=== PATIENT | female | born 1950 | race Caucasian/White ===

== ENCOUNTER → 2019-01-30 12:52 | Outpatient (CLI) | payer MEDICARE, BC, SELFPAY ==
--- NOTE | 2019-01-30 | DI.MG.S_ITS ---
BILATERAL DIGITAL SCREENING MAMMOGRAM 3D/2D WITH CAD WITH AUGMENTATION: 01/30/2019 CLINICAL: Routine screening. Family history of breast cancer. Comparison is made to exams dated: 12/20/2017 mammogram, 11/02/2016 mammogram, and 11/01/2015 mammogram - [facility]. The tissue of both breasts is heterogeneously dense. This may lower the sensitivity of mammography. Current study was also evaluated with a Computer Aided Detection (CAD) system. Bilateral breast implants are intact. No significant masses, calcifications, or other findings are seen in either breast. There has been no significant interval change. IMPRESSION: There is no mammographic evidence of malignancy. A 1 year screening mammogram is recommended. This exam was interpreted at Station ID: [id number]. NOTE: For mammograms, a report in lay terms will be sent to the patient. Approximately 15% of breast malignancies will not be visualized mammographically. In the management of a palpable breast mass, a negative mammogram must not discourage biopsy of a clinically suspicious lesion. Electronically Signed By: Agapito orellana/arun:01/30/2019 17:29:06 letter sent: Normal Exam ACR BI-RADS Category 2: Benign Finding(s) 3342F
== END ==
PROVIDERS: Family Provider Family Medicine; PCP Family Medicine
DX: Z12.31 Encounter for screening mammogram for malignant neoplasm of breast (principal); Z80.3 Family history of malignant neoplasm of breast
CPT/HCPCS: 77063; 77067

== ENCOUNTER → 2019-05-08 14:42 | Outpatient (CLI) | payer MEDICARE, BC, SELFPAY | PROVIDERS: PCP Family Medicine; Visit Provider Family Medicine | DX: M85.852 Other specified disorders of bone density and structure, left thigh (principal); Z78.0 Asymptomatic menopausal state; Z79.890 Hormone replacement therapy; Z87.891 Personal history of nicotine dependence | CPT/HCPCS: 77080; 77081 ==

== ENCOUNTER 2019-07-04 13:40 | Day surgery (SDC) | payer MEDICARE, BC, SELFPAY ==
[2019-07-04] MEDS: SODIUM CHLORIDE 0.9% 1,000 ML 200 ML IV (13:56)
[2019-07-04 14:00] VITALS: BMI 24.0
--- NOTE | 2019-07-04 15:42 | PM.HP.1 ---
History of Present Illness Date Patient Seen: 07/04/19 Time Patient Seen: 15:42 Chief complaint: [id number] Narrative: 69-year-old woman presents for his screening colonoscopy -overdue. Last 8 years ago with history of colon polyps No family history of colon or rectal cancer Tolerated prep was No abdominal complaints Patient History Family & Social History Social History: household members spouse Tobacco & Substance use: Smoking Status Former smoker alcohol intake current Meds Home Medications Medication Instructions Recorded Confirmed Type acyclovir 400 mg tablet 400 mg PO TID #90 tab 12/30/18 Rx estradiol 10 mcg vaginal tablet 10 mcg VAGINAL Q DAY #60 tab 12/30/18 Rx medroxyprogesterone 5 mg tablet 5 mg PO DAILY #90 tab 05/22/19 Rx estradiol 1 mg tablet 1 mg PO QDAY #90 tab 05/23/19 Rx triamterene 37.5 1 tab PO DAILY #90 tab 05/23/19 Rx mg-hydrochlorothiazide 25 mg tablet Allergies Allergy/AdvReac Type Severity Reaction Status Date / Time No Known Drug Allergies Allergy Verified 07/04/19 14:07 Review of Systems Constitutional Constitutional: Denies fever(s) Eyes Eyes: Denies bulging eyes ENT Ears, Nose, Mouth, and Throat: No lip swelling Cardiovascular Cardiovascular: Denies generalize swelling Respiratory Respiratory: Denies stridor Gastrointestinal Gastrointestinal: Denies coffee ground emesis Musculoskeletal Musculoskeletal: Denies loss of height Integumentary/Breasts Skin/Breast: Denies wounds Neurologic Neurologic: Denies abnormal speech and Denies confusion Psychiatric Psychiatric: Denies confusion Endocrine Endocrine: Denies deepening of the voice Hematologic/Lymphatic Hematologic/Lymphatic: Denies lymphadenopathy Allergic/Immunologic Allergic/Immunologic: Denies lip swelling Exam Const General: cooperative and healthy appearing Orientation: alert [facility] Head: normal to inspection Nose: nares normal Mouth: oral mucosae normal and lip normal Eyes Eyelids: eyelids normal Conjunctivae: conjunctivae normal Sclera: sclerae normal Neck Neck: supple and other (No thyromegally) Chest Chest: other (LCTAB , regular respiratory effort) Cardio Rhythm: regular rhythm Heart Sounds: S1 normal, S2 normal, no gallops, no murmurs and no rubs GI Other: Well-healed vertical midline incision, abdomen soft nontender nondistended Skin General: no rashes or lesions noted Neuro General: alert and awake Psych Appearance: grossly normal Affect: normal affect Assessment & Plan Assessment & Plan narrative: 69-year-old woman presents for screening colonoscopy Risks and benefits discussed This included risk of , perforation, missed lesions, incomplete colonoscopy, hypoxia All questions answered
[2019-07-04] MEDS: GLUCAGON,HUMAN RECOMBINANT 1 MG/ML VIAL IV (16:10)
[2019-07-04] MEDS: fentaNYL 250 MCG/5 ML INJ IV (16:22)
[2019-07-04] MEDS: MIDAZOLAM 5 MG/5 ML VIAL IV (16:23)
--- NOTE | 2019-07-04 16:33 | PM.OP.ENDO ---
Operative Date/Time/Diagnoses Date of procedure: 07/04/19 Time of procedure: 16:33 Pre-op diagnosis: Colorectal cancer screening Post-op diagnosis: same Procedure & Clinicians Study performed: Screening colonoscopy-complete Same procedure as scheduled: Yes Indications: 69-year-old woman 8 years status post most recent screening colonoscopy, personal history of colon polyps -hence now overdue for screening colonoscopy Surgeon: Himanshu Sanchez Procedure Notes SCOAP/Timeout: Completed Procedure in detail: Patient was brought to the operating suite a time-out was completed. She was sedated over the entire course of her procedure with 10 mg of midazolam in 250 micro g of fentanyl. A digital rectal exam was performed without lesion. 160 cm colonoscope was advanced through the folds the rectum and colon with significant difficulty, in particular there was a tight fold in what appeared to be the transverse colon which took multiple maneuvers torquing and repositioning to advance the scope beyond. The cecum was identified with a appendiceal orifice, as well as a prominent ileocecal. There was thought to be a fullness of the ileocecal valve that initially appeared abnormal. As a consequence the colonoscope was retroflexed within the cecum. From this view the ileocecal valve appeared normal without associated polyp. The scope was then carefully withdrawn. Right-sided diverticula were identified, in addition there were sigmoid diverticuli noted -there was a moderate degree of these. Scope was retroflexed in the rectum No mucosal based lesions other than diverticular disease was identified Prep was excellent Scope withdrawal time: 9 Sedation minutes: 49 Specimen(s): none sent Complications: none Impression: Tortuous colon Diverticulosis of the right and sigmoid colon Recommendations: Colonscopy in 5 years Plan for aftercare: PACU then home Follow up: as needed Disposition: PACU
[2019-07-04 16:36] VITALS: BP 126/67; PULSE 62; RESP 12; TEMP 35.8; O2SAT 96
[2019-07-04 16:41] VITALS: BP 111/66; PULSE 60; RESP 11; O2SAT 94
[2019-07-04 16:46] VITALS: BP 112/65; PULSE 60; RESP 12; O2SAT 93
--- NOTE | 2019-07-04 16:47 | SUR.PHASEI ---
aroused easily to voice upon arrival. Currently KEATON abel
[2019-07-04 17:01] VITALS: PULSE 57; RESP 12; TEMP 36.6; O2SAT 96
--- NOTE | 2019-07-04 17:03 | SUR.PHASEI ---
Pt. aroused spontaneously, denies pain, report given to Anabel Brennan RN. Stable
[2019-07-04 17:16] VITALS: BP 133/73; PULSE 60; RESP 13; TEMP 36.5; O2SAT 97
[2019-07-04 17:22] VITALS: BP 126/69; PULSE 57; RESP 12; TEMP 36.3; O2SAT 95
== END 2019-07-04 17:50 | disposition home or self-care (01) ==
PROVIDERS: PCP Family Medicine; Visit Provider Surgery
PROC: 0DJD8ZZ Inspection of Lower Intestinal Tract, Via Natural or Artificial Opening Endoscopic (ICD-10-PCS; CPT 45378; principal; 2019-07-04 15:00)
DX: Z86.010 Personal history of colon polyps (principal); K57.30 Diverticulosis of large intestine without perforation or abscess without bleeding
CPT/HCPCS: G0105; 99152; 99153; J1610; J2250; J3010

== ENCOUNTER → 2019-10-25 13:40 | Outpatient (CLI) | payer MEDICARE, BC, SELFPAY ==
--- NOTE | 2019-10-25 13:44 | DI.RAD.S_ITS ---
PROCEDURE: XR HIP W PEL IF DONE RT 2V INDICATIONS: Fall, pain to R hip, r/o bony abnormality TECHNIQUE: AP pelvis with lateral view(s) of the right hip(s). COMPARISON: None. FINDINGS: Bones: No fractures or dislocations. Pelvic ring appears intact. No suspicious bony lesions. Degenerative osteoarthritis is moderately severe at each hip. No fracture found. Soft tissues: The visualized bowel gas pattern is normal. No suspicious soft tissue calcifications. IMPRESSION: Source of asymmetric right hip pain is not seen. Moderately severe bilateral hip joint osteoarthritis is present. Dictated by: Lg Malhotra M.D. on 10/25/2019 at 14:38 Approved by: Lg Malhotra M.D. on 10/25/2019 at 14:39
--- NOTE | 2019-10-25 13:44 | DI.RAD.S_ITS ---
PROCEDURE: XR SHOULDER RT MIN 2V INDICATIONS: Fall, pain to AC joint and decreased ROM, r/o fx/AC sep TECHNIQUE: 3 views of the shoulder were acquired. COMPARISON: None. FINDINGS: Bones: No fractures or dislocations. No suspicious bony lesions. Visualized ribs appear intact. Soft tissues: No suspicious soft tissue calcifications. IMPRESSION: Mild osteoarthritis at the a.c. joint. No fracture found. Dictated by: Lg Malhotra M.D. on 10/25/2019 at 14:37 Approved by: Lg Malhotra M.D. on 10/25/2019 at 14:38
== END ==
PROVIDERS: PCP Family Medicine; Visit Provider Physician Assistant
DX: S70.01XA Contusion of right hip, initial encounter (principal); M25.511 Pain in right shoulder; M19.011 Primary osteoarthritis, right shoulder; M16.0 Bilateral primary osteoarthritis of hip; W19.XXXA Unspecified fall, initial encounter
CPT/HCPCS: 73030; 73502

== ENCOUNTER → 2020-07-02 11:36 | Outpatient (CLI) | payer MEDICARE, BC, SELFPAY ==
--- NOTE | 2020-07-02 11:39 | DI.RAD.S_ITS ---
PROCEDURE: XR CHEST 2V INDICATIONS: chest pain TECHNIQUE: 2 views of the chest were acquired. COMPARISON: None. FINDINGS: Surgical changes and devices: None. Lungs and pleura: Lungs are clear. No pleural effusions or pneumothorax. Mediastinum: Mediastinal contours are normal. Heart size is normal. Bones and chest wall: No suspicious bony abnormalities. Soft tissues appear unremarkable. IMPRESSION: No acute cardiopulmonary findings. Dictated by: Andie Betts M.D. on 07/02/2020 at 15:23 Approved by: Andie Betts M.D. on 07/02/2020 at 15:23
[2020-07-02 12:41] LABS: Add Manual Diff / Slide Review NO; Basophils Absolute Auto 0 /uL (0-100); Basophils Percent Auto 0.5 % (0-2); Eosinophils Absolute Auto 100 /uL (0-450); Eosinophils Percent Auto 0.8 % (2-4); Hematocrit 42.8 % (36-46); Hemoglobin 14.6 g/dL (12.0-16.0); Lymphocytes Absolute Auto 2500 /uL (1100-4500); Lymphocytes Percent Auto 27.3 % (25-40); Mean Corpuscular HGB Conc 34.1 % (30-36); Mean Corpuscular Hemoglobin 32.5 PG (26-34); Mean Corpuscular Volume 95.5 fL (80-100); Monocytes Absolute Auto 600 /uL (0-900); Monocytes Percent Auto 6.8 % (3-14); Neutrophils Absolute Auto 5800 /uL (1500-7000); Neutrophils Percent Auto 64.6 % (50-75); Platelet Count 411 X10^3/uL (150-400); Red Blood Cell Count 4.48 X10^6/uL (4.0-5.2); Red Cell Distribution Width 13.2 % (11.6-14.8)
[2020-07-02 15:18] LABS: Alanine Aminotransferase 13 IU/L (<35); Albumin Globulin Ratio 1.7 (1.0-2.8); Alkaline Phosphatase 74 U/L (38-126); Aspartate Aminotransferase 22 IU/L (14-36); BUN Creatinine Ratio 22.8 (6-22); Bilirubin Total 0.6 mg/dL (0.2-1.3); Blood Urea Nitrogen 21 mg/dL (7-17); Calcium 10.1 mg/dL (8.4-10.2); Carbon Dioxide 26 mmol/L (22-32); Chloride 97 mmol/L (98-107); Cholesterol 209 mg/dL (140-199); Estimated Glomerular Filt Rate > 60.0 mL/min (>60); Glucose 104 mg/dL (80-110); HDL Cholesterol 75 mg/dL (40-60); HEMOLYSIS < 15 (0-50); LDL Cholesterol Calculated 104 mg/dL (<100); Potassium 4.2 mmol/L (3.4-5.1); Sodium 135 mmol/L (137-145); Triglycerides 152 mg/dL (35-150)
== END ==
PROVIDERS: PCP Family Medicine; Referring Provider Family Medicine; Visit Provider Family Medicine
DX: R07.9 Chest pain, unspecified (principal)
CPT/HCPCS: 36415; 71046; 80053; 80061; 85025

== ENCOUNTER → 2020-07-05 10:31 | Outpatient (CLI) | payer MEDICARE, BC, SELFPAY ==
--- NOTE | 2020-07-05 10:33 | DI.US.S_ITS ---
PROCEDURE: US PELVIC COMPLETE INDICATIONS: postmenopausal bleeding TECHNIQUE: Real-time scanning was performed of the pelvic organs, with image documentation. Additional endovaginal scanning was necessary due to incomplete visualization of the adnexal and endometrial structures by transabdominal scanning. COMPARISON: [facility], , PELVIC COMPLETE, 01/16/2015, 11:19. FINDINGS: Transabdominal scanning: Limited scanning through the kidneys shows no hydronephrosis. No pathologic free abdominal or pelvic fluid. Endovaginal scanning: Uterus: Uterus is normal in size at 5.4 x 6.1 x 9.4 cm, anteverted. The endometrium measures 8.0 mm in combined thickness. There is a midline anterior submucosal fibroid measuring 2.6 x 2.2 x 3.6 cm and on the right posteriorly a submucosal 2.8 x 3.0 x 3.3 cm fibroid also can be seen. On the left there is a posterior sub serosal 3.2 x 3.9 x 3.9 cm fibroid and additional smaller fibroids appear present. Ovaries: Prior right oophorectomy, left ovary measures 1.6 x 1.8 x 3.4 cm IMPRESSION: Scattered multiple uterine fibroids are present in this patient, the large dove which measures up to 3.9 cm. This distorts the endometrial lining, and accurate assessment of each region of the endometrium is not possible in this circumstance. Therefore, biopsy may be warranted given the history of postmenopausal bleeding. Gynecological consultation is recommended. Dictated by: Lg Malhotra M.D. on 07/05/2020 at 14:56 Approved by: Lg Malhotra M.D. on 07/05/2020 at 15:09
== END ==
PROVIDERS: PCP Family Medicine; Referring Provider Family Medicine; Visit Provider Family Medicine
DX: N95.0 Postmenopausal bleeding (principal); D25.0 Submucous leiomyoma of uterus; D25.2 Subserosal leiomyoma of uterus
CPT/HCPCS: 76830; 76856

== ENCOUNTER → 2020-07-12 11:35 | Outpatient (CLI) | payer MEDICARE, BC, SELFPAY ==
[2020-07-13 10:46] LABS: COVID19 Sendout Not Detected (Not Detect)
== END ==
PROVIDERS: PCP Family Medicine; Visit Provider Physician Assistant
DX: Z11.59 Encounter for screening for other viral diseases (principal)
CPT/HCPCS: 87635

== ENCOUNTER → 2020-07-15 08:29 | Outpatient (CLI) | payer MEDICARE, BC, SELFPAY ==
--- NOTE | 2020-07-15 14:34 | PM.TREADMILL ---
Cardiac Stress Test Report Referral & Results Date Patient Seen: 07/15/20 Requesting provider: Toña Harrell Indication: Chest pain Rest ECG: Unremarkable, occasional PVC Procedure Note: Today following both written and verbal informed consent the patient was exercised according to a standard Greg protocol patient went for a total of 4 minutes 49 seconds achieving a maximum heart rate of 148 maximum systolic blood pressure of 190 and. This is approximately 7.0 METS. Exercise was terminated at this point because of patient became acutely lightheaded dyspneic and diaphoretic (without any ECG or vital sign change, specifically no dysrhythmia or ST changes). Patient was also given Cardiolite through a previously started Hep-Lock IV by the diagnostic imaging staff approximately 1 minute prior to the cessation of exercise. There are no ST-T segment changes throughout the monitoring period. Function aerobic impairment rates-10% on the sedentary scale or 10% better than average Occasional PVC including ventricular couplets. Rare PAC Impression: No ischemia. Better than average exercise capacity. No clear etiology to explain patient's symptoms of diaphoresis dizziness and dyspnea at and exercise as above. Perfusion imaging will be reported separately Please note: Actual ECG tracings can be found in the PACS system.
--- NOTE | 2020-07-15 19:15 | DI.NM.S_ITS ---
DATE OF SERVICE: 07/15/2020 PROCEDURE: Exercise perfusion study. INDICATION: Chest pain. RADIOPHARMACEUTICAL: 26.5 millicurie technetium-99m Myoview IV was injected at stress and 12.4 millicurie technetium-99m Myoview IV was injected at rest. CARDIAC STRESS: The patient underwent exercise perfusion study under the supervision of an attending staff. The patient walked on Greg protocol for 4 minutes 49 seconds and achieved 99 percent of target heart rate. Baseline blood pressure 138/80 and peak blood pressure 190/100. The patient developed extreme dizziness, hence, treadmill was discontinued. Patient also developed dyspnea and diaphoresis. Baseline EKG revealed sinus rhythm. During exercise, there were no ischemic changes. Occasional ventricular couplets and some PACs and PVCs. No sustained ventricular tachycardia. RAW DATA: Breast shadow was seen. GATED STUDY: Resting LV ejection fraction 67 percent and stress LV ejection fraction 77 percent. Resting end-diastolic volume 91 mL. TID ratio 0.72, which is within normal limits. Lung/heart ratio 0.22, which is within normal limits. MYOCARDIAL PERFUSION: Stress supine, resting supine, as well as stress prone images were compared to each other. The resting supine and stress prone images revealed a small size, mildly decreased perfusion of apex, which got improved during stress supine. During stress supine, there are no significant perfusion defects seen. The patient has history of breast implant. CONCLUSION: I will call this study likely a normal myocardial perfusion study. The patient has breast implant. Breast shadow was seen. The patient developed significant dizziness while walking on treadmill. No ischemic electrocardiographic changes. There was no significant sustained ventricular or supraventricular arrhythmias, other than some premature ventricular contractions and premature atrial contractions. Mildly hypertensive blood pressure response. Correlate clinically. Lynnette Flood - GUILLERMO/dionne/jessy doc#: [id number]/job#: [id number] dd: 07/15/2020 17:19:00 dt: 07/15/2020 18:57:00 DICTATING MD/COPIES TO: Martina Rivera MD COPIES MNE: APURVA;
== END ==
PROVIDERS: PCP Family Medicine; Referring Provider Family Medicine; Visit Provider Family Medicine
DX: R07.9 Chest pain, unspecified (principal); R42 Dizziness and giddiness; I49.1 Atrial premature depolarization; I49.3 Ventricular premature depolarization; R03.0 Elevated blood-pressure reading, without diagnosis of hypertension; Z98.82 Breast implant status
CPT/HCPCS: 78452; 93016; 93017; 93018; A9502

== ENCOUNTER → 2020-07-26 10:10 | Outpatient (CLI) | payer MEDICARE, BC, SELFPAY ==
--- NOTE | 2020-07-26 10:21 | DI.MG.S_ITS ---
Patient Name: MARIE REDMOND date: 1950 Sex: F Attending Physician: Emir Indications: Date: 07/26/2020 10:30 At the request of: RADHA DAY Procedure: MM screening mammo implant BI BILATERAL DIGITAL SCREENING MAMMOGRAM 3D/2D WITH CAD WITH AUGMENTATION: 07/26/2020 CLINICAL: Patient presents for routine screening. S/P bilateral augmentation. Family history of breast cancer. Comparison is made to exams dated: 01/30/2019 mammogram, 12/20/2017 mammogram, and 11/02/2016 mammogram - [facility]. The tissue of both breasts is heterogeneously dense. This may lower the sensitivity of mammography. Current study was also evaluated with a Computer Aided Detection (CAD) system. Bilateral breast implants are intact. No significant masses, calcifications, or other findings are seen in either breast. There has been no significant interval change. IMPRESSION: NEGATIVE There is no mammographic evidence of malignancy. A 1 year screening mammogram is recommended. This exam was interpreted at Station ID: [id number]. NOTE: For mammograms, a report in lay terms will be sent to the patient. Approximately 15% of breast malignancies will not be visualized mammographically. In the management of a palpable breast mass, a negative mammogram must not discourage biopsy of a clinically suspicious lesion. Electronically Signed By: Josue randhawa/arun:07/26/2020 10:42:06 copy to: Toña Harrell Continued Report - Page 2 of 2 Patient Name: MARIE REDMOND date: 1950 Sex: F Attending Physician: Emir Indications: Date: 07/26/2020 10:30 At the request of: RADHA DAY Procedure: MM screening mammo implant BI letter sent: Normal Exam ACR BI-RADS Category 1: Negative 3341F
== END ==
PROVIDERS: PCP Family Medicine; Referring Provider Family Medicine
DX: Z12.31 Encounter for screening mammogram for malignant neoplasm of breast (principal); Z80.3 Family history of malignant neoplasm of breast; Z98.82 Breast implant status
CPT/HCPCS: 77063; 77067

== ENCOUNTER → 2021-02-13 14:11 | Outpatient (CLI) | payer MEDICARE, SELFPAY ==
[2021-02-13 14:44] LABS: Add Manual Diff / Slide Review NO; Basophils Absolute Auto 0 /uL (0-100); Basophils Percent Auto 0.4 % (0-2); Eosinophils Absolute Auto 100 /uL (0-450); Eosinophils Percent Auto 1.3 % (2-4); Hematocrit 40.9 % (36-46); Hemoglobin 13.6 g/dL (12.0-16.0); Lymphocytes Absolute Auto 3700 /uL (1100-4500); Lymphocytes Percent Auto 38.3 % (25-40); Mean Corpuscular HGB Conc 33.2 % (30-36); Mean Corpuscular Hemoglobin 31.4 PG (26-34); Mean Corpuscular Volume 94.4 fL (80-100); Monocytes Absolute Auto 600 /uL (0-900); Monocytes Percent Auto 6.6 % (3-14); Neutrophils Absolute Auto 5200 /uL (1500-7000); Neutrophils Percent Auto 53.4 % (50-75); Platelet Count 397 X10^3/uL (150-400); Red Blood Cell Count 4.33 X10^6/uL (4.0-5.2); Red Cell Distribution Width 13.3 % (11.6-14.8); White Blood Cell Count 9.8 X10^3/uL (4.5-11.0)
[2021-02-13 15:01] LABS: Alanine Aminotransferase 12 IU/L (<35); Albumin 4.6 g/dL (3.5-5.0); Albumin Globulin Ratio 1.5 (1.0-2.8); Alkaline Phosphatase 69 U/L (38-126); Aspartate Aminotransferase 22 IU/L (14-36); BUN Creatinine Ratio 24.1 (6-22); Bilirubin Total 0.3 mg/dL (0.2-1.3); Blood Urea Nitrogen 20 mg/dL (7-17); C-Reactive Protein Quant 1.3 mg/dL (<1.0); Calcium 10.3 mg/dL (8.4-10.2); Carbon Dioxide 24 mmol/L (22-32); Chloride 101 mmol/L (98-107); Estimated Glomerular Filt Rate > 60.0 mL/min (>60); Glucose 112 mg/dL (80-110); HEMOLYSIS < 15 (0-50); Potassium 4.5 mmol/L (3.4-5.1); Sodium 136 mmol/L (137-145); Total Protein 7.6 g/dL (6.3-8.2)
== END ==
PROVIDERS: PCP Family Medicine; Referring Provider Family Medicine; Visit Provider Family Medicine
DX: S81.801A Unspecified open wound, right lower leg, initial encounter (principal); S81.802A Unspecified open wound, left lower leg, initial encounter
CPT/HCPCS: 36415; 80053; 85025; 86140

== ENCOUNTER → 2021-02-24 09:06 | Outpatient (CLI) | payer MEDICARE, SELFPAY | PROVIDERS: PCP Family Medicine; Referring Provider Family Medicine; Visit Provider Family Medicine | DX: S81.802A Unspecified open wound, left lower leg, initial encounter (principal); L40.9 Psoriasis, unspecified; R60.0 Localized edema | CPT/HCPCS: 11042; 99204 ==

== ENCOUNTER → 2021-03-03 09:57 | Outpatient (CLI) | payer MEDICARE, SELFPAY | PROVIDERS: PCP Family Medicine; Referring Provider Family Medicine; Visit Provider Family Medicine | DX: S81.802A Unspecified open wound, left lower leg, initial encounter (principal); L40.9 Psoriasis, unspecified; L08.9 Local infection of the skin and subcutaneous tissue, unspecified | CPT/HCPCS: 11042; 87070; 87075; 87205; 99213 ==

== ENCOUNTER → 2021-03-10 10:13 | Outpatient (CLI) | payer MEDICARE, SELFPAY | PROVIDERS: PCP Family Medicine; Referring Provider Family Medicine; Visit Provider Family Medicine | DX: S81.802A Unspecified open wound, left lower leg, initial encounter (principal); L40.9 Psoriasis, unspecified; R60.0 Localized edema | CPT/HCPCS: 97597; 99212 ==

== ENCOUNTER → 2021-03-12 16:21 | Outpatient (CLI) | payer MEDICARE, SELFPAY | PROVIDERS: PCP Family Medicine; Referring Provider Family Medicine; Visit Provider Family Medicine | DX: S81.802A Unspecified open wound, left lower leg, initial encounter (principal) | CPT/HCPCS: 29581 ==

== ENCOUNTER → 2021-03-19 10:51 | Outpatient (CLI) | payer MEDICARE, SELFPAY | PROVIDERS: PCP Family Medicine; Referring Provider Family Medicine; Visit Provider Nurse Practitioner Family | DX: R60.0 Localized edema (principal); S81.802A Unspecified open wound, left lower leg, initial encounter | CPT/HCPCS: 29581 ==

== ENCOUNTER → 2021-03-25 11:23 | Outpatient (CLI) | payer MEDICARE, SELFPAY | PROVIDERS: PCP Family Medicine; Referring Provider Family Medicine; Visit Provider Family Medicine | DX: S81.802A Unspecified open wound, left lower leg, initial encounter (principal); L40.9 Psoriasis, unspecified; R60.0 Localized edema | CPT/HCPCS: 11042 ==

== ENCOUNTER → 2021-04-01 11:15 | Outpatient (CLI) | payer MEDICARE, SELFPAY | PROVIDERS: PCP Family Medicine; Referring Provider Family Medicine; Visit Provider Family Medicine | DX: I87.2 Venous insufficiency (chronic) (peripheral) (principal); L97.821 Non-pressure chronic ulcer of other part of left lower leg limited to breakdown of skin; R60.0 Localized edema; L40.0 Psoriasis vulgaris; Z87.891 Personal history of nicotine dependence | CPT/HCPCS: 11042; 99213 ==

== ENCOUNTER → 2021-04-08 10:18 | Outpatient (CLI) | payer MEDICARE, SELFPAY | PROVIDERS: PCP Family Medicine; Referring Provider Family Medicine; Visit Provider Family Medicine | DX: I87.2 Venous insufficiency (chronic) (peripheral) (principal); R60.0 Localized edema; L40.0 Psoriasis vulgaris | CPT/HCPCS: 99212; 99213 ==

== ENCOUNTER → 2021-10-23 10:14 | Outpatient (CLI) | payer MEDICARE, SELFPAY ==
[2021-10-23 11:43] LABS: COVID19 -Nasal RAPID Negative (Negative)
== END ==
PROVIDERS: PCP Family Medicine; Referring Provider Internal Medicine; Visit Provider Internal Medicine
DX: Z20.822 Contact with and (suspected) exposure to COVID-19 (principal)
CPT/HCPCS: 87635; C9803

== ENCOUNTER → 2021-10-24 08:52 | Outpatient (CLI) | payer MEDICARE, SELFPAY ==
--- NOTE | 2021-10-29 09:58 | PM.PFT.1 ---
Pulmonary Function Test Referral & Results Date Patient Seen: 10/24/21 Requesting provider: Toña Harrell Results: The spirometry demonstrates an FVC of 2.38 L which is 64% of predicted. The FEV1 was measured at 1.45 L which is 52% of predicted. The FEV1/FVC ratio was 61 which is 81% of predicted. Following the administration of bronchodilator there was a 27% improvement in FEV1 and a 125% improvement in FEF 25-75% Lung volumes show an SVC of 2.59 L which is 76% of predicted. The diffusing capacity was measured at 23.64 which is 73% of predicted. No hemoglobin value was provided, so no correction for potential anemia could be made, if appropriate. The maximum voluntary ventilation was reduced Interpretation: This study demonstrates moderate obstructive lung disease based on reduction FEV1. There is evidence of significant benefit following bronchodilator based both on improvement in FEV1 and FEF 25-75% as above There is evidence of mild restrictive lung disease based on reduction SVC There is also mild reduction diffusing capacity suggesting disease at the capillary alveolar level Altogether this is consistent with a diagnosis of COPD Clinical correlation suggested
== END ==
PROVIDERS: PCP Family Medicine; Referring Provider Family Medicine; Visit Provider Family Medicine
DX: J43.2 Centrilobular emphysema (principal); Z87.891 Personal history of nicotine dependence; J98.8 Other specified respiratory disorders
CPT/HCPCS: 94060; 94726; 94729

== ENCOUNTER → 2021-11-20 11:13 | Outpatient (CLI) | payer MEDICARE, SELFPAY ==
--- NOTE | 2021-11-20 11:15 | DI.MG.S_ITS ---
BILATERAL DIGITAL SCREENING MAMMOGRAM 3D/2D WITH CAD WITH AUGMENTATION: 11/20/2021 CLINICAL: Patient presents for routine screening. S/P bilateral augmentation. Family history of breast cancer. Comparison is made to exams dated: 07/26/2020 mammogram, 01/30/2019 mammogram, and 12/20/2017 mammogram - [facility]. The tissue of both breasts is heterogeneously dense. This may lower the sensitivity of mammography. Current study was also evaluated with a Computer Aided Detection (CAD) system. Bilateral saline implants are intact. There is a possible new architectural distortion in the left breast at 4 o'clock anterior depth. Finding is seen only on tomography. No other significant masses, calcifications, or other findings are seen in either breast. IMPRESSION: INCOMPLETE: NEEDS ADDITIONAL IMAGING EVALUATION The possible new architectural distortion in the left breast is indeterminate. Additional views with possible ultrasound are recommended. This exam was interpreted at Station ID: [id number]. NOTE: For mammograms, a report in lay terms will be sent to the patient. Approximately 15% of breast malignancies will not be visualized mammographically. In the management of a palpable breast mass, a negative mammogram must not discourage biopsy of a clinically suspicious lesion. Electronically Signed By: Josue randhawa/arun:11/20/2021 15:24:05 copy to: Toña Harrell letter sent: Additional Imaging Needed ACR BI-RADS Category 0: Incomplete 3340F
== END ==
PROVIDERS: PCP Family Medicine; Referring Provider Family Medicine; Visit Provider Family Medicine
DX: Z12.31 Encounter for screening mammogram for malignant neoplasm of breast (principal); Z80.3 Family history of malignant neoplasm of breast; Z98.82 Breast implant status
CPT/HCPCS: 77063; 77067

== ENCOUNTER → 2021-12-12 12:32 | Outpatient (CLI) | payer MEDICARE, SELFPAY ==
--- NOTE | 2021-12-12 12:34 | DI.US.S_ITS ---
ULTRASOUND OF LEFT BREAST: 12/12/2021 CLINICAL: Patient returns today to evaluate an asymmetry in the left breast. Comparison is made to exams dated: 11/20/2021 mammogram, 12/12/2021 mammogram, 07/26/2020 mammogram, 01/30/2019 mammogram, 12/20/2017 mammogram, and 11/02/2016 mammogram - [facility]. Color flow ultrasound of the left breast was performed. In the left breast retroareolar region 3:00 position there is a simple cyst measuring 0.4 x 0.4 x 0.4 cm. In the left breast 2:00 to 5:00 position 1 to 5 cm from the nipple there is dense tissue with no ultrasound abnormality. No sonographic evidence of maligancy. IMPRESSION: PROBABLY BENIGN Ultrasound findings are benign, however additional views performed to evaluate an area of possible subtle spiculation in the left 3:00 position persisted on the CC implant displaced tomographic view centered at image 21/54. This finding is probably benign, however recommend 6 month follow-up mammogram to ensure stability and no interval change. This exam was interpreted at Station ID: [id number]. Electronically Signed By: Maxx Leon acr/:12/12/2021 14:21:33 copy to: Toña Harrell letter sent: Followup Recommended Ultrasound BI-RADS: 3 Probably benign
--- NOTE | 2021-12-12 12:34 | DI.MG.S_ITS ---
UNILATERAL LEFT DIGITAL DIAGNOSTIC MAMMOGRAM 3D/2D WITH ADDITIONAL VIEWS WITH AUGMENTATION: 12/12/2021 CLINICAL: Additional evaluation requested from prior study. Comparison is made to exams dated: 11/20/2021 mammogram, 07/26/2020 mammogram, and 01/30/2019 mammogram - [facility]. The tissue of left breast is heterogeneously dense. This may lower the sensitivity of mammography. There is possible architectural distortion in the left breast at 4 o'clock anterior depth. This is seen in additional views. No other significant masses or calcifications are seen in the breast. IMPRESSION: INCOMPLETE: NEEDS ADDITIONAL IMAGING EVALUATION The possible architectural distortion in the left breast is indeterminate. An ultrasound is recommended. This exam was interpreted at Station ID: [id number]. NOTE: For mammograms, a report in lay terms will be sent to the patient. Approximately 15% of breast malignancies will not be visualized mammographically. In the management of a palpable breast mass, a negative mammogram must not discourage biopsy of a clinically suspicious lesion. Electronically Signed By: Maxx Leon acr/:12/12/2021 13:55:39 copy to: Toña Harrell [facility] BI-RADS Category 0: Incomplete 3340F
== END ==
PROVIDERS: PCP Family Medicine; Referring Provider Family Medicine; Visit Provider Family Medicine
DX: R92.8 Other abnormal and inconclusive findings on diagnostic imaging of breast (principal); N60.02 Solitary cyst of left breast
CPT/HCPCS: 76642; 77065; G0279

== ENCOUNTER → 2021-12-17 11:42 | Outpatient (CLI) | payer MEDICARE, SELFPAY ==
[2021-12-17 12:17] LABS: Appearance Urine UA CLEAR; Bilirubin Urine UA NEGATIVE (NEGATIVE); Color Urine UA YELLOW; Glucose Urine UA NEGATIVE (Negative); Ketones Urine UA NEGATIVE (NEGATIVE); Leukocyte Esterase Urine UA TRACE (NEGATIVE); Nitrite Urine UA NEGATIVE (Negative); Occult Blood Urine UA 2+ (Negative); Protein Urine UA NEGATIVE (Negative); Specific Gravity Urine UA 1.015 (1.000-1.035); Urobilinogen Urine UA 0.2 E.U./dL (0.2)
[2021-12-17 13:33] LABS: Bacteria Urine Many (>30); Culture Indicated Urine Specimen Cultured; RBC Urine 1-5/HPF (0-5/HPF); WBC Urine 10-30/HPF (0-5/HPF)
== END ==
PROVIDERS: PCP Family Medicine; Referring Provider Family Medicine; Visit Provider Family Medicine
DX: R82.90 Unspecified abnormal findings in urine (principal)
CPT/HCPCS: 81001; 87077; 87086; 87186

== ENCOUNTER → 2022-01-27 10:49 | Outpatient (CLI) | payer MEDICARE, SELFPAY ==
--- NOTE | 2022-01-27 10:50 | DI.RAD.S_ITS ---
PROCEDURE: XR LUMBAR SPINE 2-3V INDICATIONS: low back pain, h/o surgery TECHNIQUE: 3 views of the lumbar spine were acquired. COMPARISON: [facility], , -SPINE 2-3 VIEWS, 03/21/2013, 8:26. FINDINGS: Bones: There are 5 [id number] lumbar vertebral bodies. Patient is status post left-sided L3-S1 posterior fusion and discectomy. No hardware fracture. Normal spinal alignment. Degenerative changes are present at L1-2 and L2-3. No suspicious bony lesions. No compression deformities. Soft tissues: Overlying bowel gas pattern is normal. No suspicious soft tissue calcifications. IMPRESSION: Postoperative change and degenerative change. Dictated by: Andie Betts M.D. on 01/27/2022 at 14:35 Approved by: Andie Betts M.D. on 01/27/2022 at 14:36
== END ==
PROVIDERS: PCP Family Medicine; Referring Provider Family Medicine; Visit Provider Family Medicine
DX: M47.816 Spondylosis without myelopathy or radiculopathy, lumbar region (principal); M54.50 Low back pain, unspecified; Z98.1 Arthrodesis status
CPT/HCPCS: 72100

== ENCOUNTER → 2022-06-01 14:04 | Outpatient (CLI) | payer MEDICARE, SELFPAY ==
--- NOTE | 2022-06-01 | DI.MG.S_ITS ---
UNILATERAL LEFT DIGITAL DIAGNOSTIC MAMMOGRAM 3D/2D SHORT-TERM FOLLOW-UP WITH AUGMENTATION: 06/01/2022 CLINICAL: Short term follow up. Comparison is made to exams dated: 12/12/2021 mammogram, 11/20/2021 mammogram, 07/26/2020 mammogram, and 01/30/2019 mammogram - [facility]. The tissue of left breast is heterogeneously dense. This may lower the sensitivity of mammography. Left saline implant is intact. There is possible architectural distortion in the left breast middle depth central to the nipple seen on the mediolateral oblique view only. This is less prominent and was not seen on the prior ultrasound. No other significant masses or calcifications are seen in the breast. IMPRESSION: PROBABLY BENIGN Possible architectural distortion in the left breast is less prominent and is probably benign. A follow-up mammogram in 6 months is recommended to demonstrate stability. Patient will be due for right mammogram at that time. Exam findings were conveyed to the patient. Based on the Tyrer Cuzick model (a risk assessment model) the patient's lifetime risk is 5.8% and her 10 year risk is 4.3%. According to the ACR, ACS, and NCCN guidelines, an annual breast MRI exam along with mammogram is recommended if the patient's lifetime risk is 20% or greater. This exam was interpreted at Station ID: [id number]. NOTE: For mammograms, a report in lay terms will be sent to the patient. Approximately 15% of breast malignancies will not be visualized mammographically. In the management of a palpable breast mass, a negative mammogram must not discourage biopsy of a clinically suspicious lesion. Electronically Signed By: Vijay Matos M.D. slc/:06/01/2022 14:54:00 copy to: Toña Harrell letter sent: Followup Recommended ACR BI-RADS Category 3: Probably benign 3343F
== END ==
PROVIDERS: PCP Family Medicine; Referring Provider Physician Assistant; Visit Provider Physician Assistant
DX: N63.20 Unspecified lump in the left breast, unspecified quadrant (principal); R92.8 Other abnormal and inconclusive findings on diagnostic imaging of breast
CPT/HCPCS: 77065; G0279

== ENCOUNTER → 2022-10-16 12:34 | Outpatient (CLI) | payer MEDICARE, SELFPAY ==
--- NOTE | 2022-10-16 12:36 | DI.RAD.S_ITS ---
PROCEDURE: XR CHEST 2V INDICATIONS: shortness of breath TECHNIQUE: 2 views of the chest were acquired. COMPARISON: [facility], CR, XR CHEST 2V, 07/02/2020, 11:39. FINDINGS: Surgical changes and devices: None. Lungs and pleura: Lungs are clear. No pleural effusions or pneumothorax. Mediastinum: Mediastinal contours are normal. Heart size is normal. Bones and chest wall: No suspicious bony abnormalities. Soft tissues appear unremarkable. IMPRESSION: Stable appearance of the chest, no source of shortness of breath is found. Dictated by: Lg Malhotra M.D. on 10/16/2022 at 13:26 Approved by: Lg Malhotra M.D. on 10/16/2022 at 13:27
[2022-10-16 14:07] LABS: Hematocrit 32.7 % (36-46); Hemoglobin 11.3 g/dL (12.0-16.0); Mean Corpuscular HGB Conc 34.4 % (30-36); Mean Corpuscular Hemoglobin 36.2 PG (26-34); Mean Corpuscular Volume 105.2 fL (80-100); Platelet Count 208 X10^3/uL (150-400); Red Blood Cell Count 3.11 X10^6/uL (4.0-5.2); Red Cell Distribution Width 16.2 % (11.6-14.8)
[2022-10-16 14:11] LABS: White Blood Cell Count 1.9 X10^3/uL (4.5-11.0)
[2022-10-16 14:20] LABS: Neutrophils Absolute Manual 114 /uL (3000-5900); RBC Morphology Normal Morphology; Total Cells Counted 50
[2022-10-16 14:31] LABS: Alanine Aminotransferase 18 IU/L (<35); Albumin 4.6 g/dL (3.5-5.0); Albumin Globulin Ratio 1.3 (1.0-2.8); Alkaline Phosphatase 90 U/L (38-126); Aspartate Aminotransferase 23 IU/L (14-36); BUN Creatinine Ratio 22.1 (6-22); Bilirubin Total 0.7 mg/dL (0.2-1.3); Blood Urea Nitrogen 19 mg/dL (7-17); C-Reactive Protein Quant 3.2 mg/dL (<1.0); Calcium 9.7 mg/dL (8.4-10.2); Carbon Dioxide 27 mmol/L (22-32); Chloride 95 mmol/L (98-107); Estimated Glomerular Filt Rate > 60 mL/min (>60); Globulin 3.6 g/dL (1.7-4.1); Glucose 103 mg/dL (80-110); HEMOLYSIS < 15 (0-50); Potassium 3.6 mmol/L (3.4-5.1); Sodium 136 mmol/L (137-145); Total Protein 8.2 g/dL (6.3-8.2)
== END ==
PROVIDERS: PCP Family Medicine; Referring Provider Family Medicine; Visit Provider Family Medicine
DX: R06.02 Shortness of breath (principal); D64.9 Anemia, unspecified
CPT/HCPCS: 36415; 71046; 80053; 85025; 86140

== ENCOUNTER → 2022-10-23 16:17 | Outpatient (CLI) | payer MEDICARE, SELFPAY | PROVIDERS: PCP Family Medicine; Referring Provider Family Medicine; Visit Provider Family Medicine | DX: D72.819 Decreased white blood cell count, unspecified (principal) | CPT/HCPCS: 36415 ==